=== PATIENT | female | born 1925 | race Caucasian/White ===

== ENCOUNTER 2017-08-08 22:02 | Emergency (ER) | payer OTHER ==
[2017-08-08 22:13] VITALS: BP 153/78; PULSE 75; TEMP 97.6; BMI 27.4
--- NOTE | 2017-08-08 22:56 | PDOC ---
History of Present Illness - General Chief Complaint: Pain, Acute Stated Complaint: LEFT SIDE ABD PAIN Time Seen by Provider: 08/08/17 22:56 - History of Present Illness Initial Comments: 89 year old female with PMH of breast cancer (s/p mastectomy), squamous cell cancer (s/p resection), back spasms, and chronic skin changes presenting for left inguinal pain of sudden onset. She states that she was eating dinner and suddenly felt a sharp burning sensation in her left inguinal area. The pain subsided after a few minutes and she was actually asymptomatic upon presentation to the ED. She denies fevers, chills, nausea, vomiting, diarrhea, constipation, urinary symptoms, or other sick symptoms. 08/09/17 00:56 Past History - Past Medical History Allergies/Adverse Reactions: Allergies Allergy/AdvReac Type Severity Reaction Status Date / Time amoxicillin trihydrate Allergy Verified 08/08/17 22:10 [From Augmentin] meperidine HCl [From Demerol] Allergy Verified 08/08/17 22:10 potassium clavulanate Allergy Verified 08/08/17 22:10 [From Augmentin] sulfamethoxazole Allergy Verified 08/08/17 22:10 [From Bactrim] trimethoprim [From Bactrim] Allergy Verified 08/08/17 22:10 minocycline AdvReac Verified 08/08/17 22:10 Home Medications: Ambulatory Orders Ambien 2.5 mg PO HS 06/15/17 Aspirin [ASA -] 81 mg PO DAILY 06/15/17 Calcium 1,500 mg PO DAILY 06/15/17 Gabapentin 600 mg PO BID 06/15/17 Levothyroxine [Synthroid -] 25 mcg PO DAILY 06/15/17 Lisinopril 7.5 mg PO DAILY 06/15/17 Rosuvastatin Calcium [Crestor] 40 mg PO DAILY 06/15/17 HTN: Yes Hypercholesterolemia: Yes Thyroid Disease: Yes (hypothyroidism) - Surgical History Cardiac Surgery: Yes (stents) - Suicide/Smoking/Psychosocial Hx Smoking History: Never smoked Have you smoked in the past 12 months: No Information on smoking cessation initiated: No Hx Alcohol Use: No Drug/Substance Use Hx: No Review of Systems - Review of Systems Constitutional: No: Chills, Diaphoresis, Fever HEENTM: No: Eye Pain, Blurred Vision Respiratory: No: Cough, Shortness of Breath Cardiac (ROS): No: Chest Pain, Edema, Irregular Heart Rate ABD/GI: No: Abdominal Distended, Constipated, Diarrhea, Nausea, Vomiting : No: Dysuria, Hematuria, Urgency Musculoskeletal: Yes: Back Pain *Physical Exam - Vital Signs Last Vital Signs Temp Pulse Resp BP Pulse Ox 97.6 F 75 18 153/78 99 08/08/17 22:10 08/08/17 22:10 08/08/17 22:10 08/08/17 22:10 08/08/17 22:10 - Physical Exam General Appearance: Yes: Nourished, Appropriately Dressed, Apparent Distress HEENT: positive: EOMI, EMIL, Normal ENT Inspection, Normal Voice, Other (well healing right sided scalp skin graft from previous resection) Neck: positive: Trachea midline, Normal Thyroid, Supple. negative: Tender, Rigid Respiratory/Chest: positive: Lungs Clear, Normal Breath Sounds. negative: Chest Tender, Respiratory Distress Cardiovascular: positive: Regular Rhythm, Regular Rate Gastrointestinal/Abdominal: positive: Normal Bowel Sounds, Flat, Soft. negative : Tender Lymphatic: positive: Adenopathy (Left inguinal lymph node measuring approximately 8-10 mm in diameter.) Extremity: positive: Normal Capillary Refill, Normal Inspection, Normal Range of Motion. negative: Tender Integumentary: positive: Dry, Warm. negative: Normal Color (Has chronic skin changes across face and legs.) Neurologic: positive: Fully Oriented, Alert, Normal Mood/Affect Medical Decision Making - Medical Decision Making 89 year old female with history of malignancy and skin conditions presenting with left inguinal pain that has resolved without intervention. US demonstrating small benign appearing lymph node and UA clear. Will discharge with instructions to follow up with PMD as needed and return precautions. 08/09/17 01:26 *DC/Admit/Observation/Transfer Diagnosis at time of Disposition: Lymphadenopathy - Discharge Dispostion Disposition: HOME Condition at time of disposition: Improved Admit: No - Referrals Referrals: Romana Stovall MD [Primary Care Provider] - - Patient Instructions Additional Instructions: We took an US of your left inguinal region and saw a typical appearing lymph node that should resolve on its own. Please follow up with your primary care provider. Please use Tylenol for pain. Please return to the ED for any new or worsening symptoms. - Post Discharge Activity
--- NOTE | 2017-08-08 23:45 | PDOC ---
Attending Attestation - HPI HPI: 08/08/17 23:49 The patient is a 89 year old female, with a significant past medical history of breast CA s/p mastectomy, HTN, Hyperlipidemia, duodenal ulcer, back spasms, Squamous Cell (underwent AG surgery to remove on the face), who presents to the emergency department with sudden onset of burning pain to her left inguinal region while seated at her table for dinner this evening. She reports the pain/ burning resolved on its own, but was concerned about the pain and presents for evaluation. She denies chest pain, shortness of breath, headache and dizziness. She denies fever, chills, nausea, vomit, diarrhea and constipation. She denies dysuria, frequency, urgency and hematuria. Past surgical history: Carotid Endarterectomy, Colonoscopy, Mastectomy, Angioplasty, vitrectomy of the L eye, Cardiac Stent placed in 2012 Social history: denies toxic habits PCP - Dr. Stovall Documentation prepared by Polina Gillette, acting as medical economics consultant for Dionisio Boland DO <Polina Gillette - Last Filed: 08/08/17 23:49> - Resident Resident Name: Alexandra Nelson - ED Attending Attestation I have performed the following: I have examined & evaluated the patient, The case was reviewed & discussed with the resident, I agree w/resident's findings & plan, Exceptions are as noted - Physicial Exam PE: 08/09/17 01:30 *Physical Exam General Appearance: Yes: Appropriately Dressed. No: Apparent Distress, Intoxicated HEENT: positive: EOMI, EMIL, Normal ENT Inspection, Normal Voice, TMs Normal, Pharynx Normal. negative: Pale Conjunctivae, Photophobia, Scleral Icterus (R), Scleral Icterus (L) Neck: positive: Trachea midline, Normal Thyroid, Supple. negative: Tender, Rigid, Carotid bruit, Stridor, Lymphadenopathy (R), Lymphadenopathy (L), Thyromegaly Respiratory/Chest: positive: Lungs Clear, Normal Breath Sounds. negative: Chest Tender, Respiratory Distress, Accessory Muscle Use, Labored Respiration, RES, Crackles, Rales, Rhonchi, Stridor, Wheezing, Dullness Cardiovascular: positive: Regular Rhythm, Regular Rate, S1, S2. negative: Edema , JVD, Murmur, Bradycardia, Tachycardia Vascular Pulses: Dorsalis-Pedis (R): 2+, Doralis-Pedis (L): 2+ Gastrointestinal/Abdominal: positive: Normal Bowel Sounds, Flat, Soft. negative : Tender, Organomegaly, Pulsatile Mass, Increased Bowel Sounds, Decreased BS, Distended, Guarding, Rebound, Hernia, Hepatomegaly, Spleenomegaly Lymphatic: negative: Adenopathy, Tenderness Musculoskeletal: positive: small inguinal lesion left side negative: CVA Tenderness, Decreased Range of Motion Extremity: positive: Normal Capillary Refill, Normal Inspection, Normal Range of Motion, Pelvis Stable. negative: Tender, Pedal Edema, Swelling, Erythema Integumentary: positive: Normal Color, Dry, Warm. negative: Cyanotic, Erythema , Jaundice, Rash Neurologic: positive: financial coordinator II-XII NML intact, Fully Oriented, Alert, Normal Mood/ Affect, Motor Strength 5/5. negative: EOM Palsy, Facial Droop, Sensory Deficit - Medical Decision Making 08/09/17 19:29 Pt treated and released. <Dionisio Boland - Last Filed: 08/09/17 19:29>
[2017-08-09 00:39] LABS: PH,URINE 5.5 (5.0-8.0); URINE APPEARANCE CLEAR; URINE BILIRUBIN NEGATIVE (NEGATIVE); URINE BLOOD NEGATIVE (NEGATIVE); URINE COLOR LT. YELLOW; URINE GLUCOSE (UA) NEGATIVE (NEGATIVE); URINE KETONE NEGATIVE (NEGATIVE); URINE NITRITE NEGATIVE (NEGATIVE); URINE PROTEIN NEGATIVE (NEGATIVE); URINE UROBILINOGEN 0.2 mg/dL (0.2-1.0)
[2017-08-09 11:07] LABS: URINE LEUK ESTERASE 1+ (NEGATIVE)
[2017-08-09 12:38] LABS: URINE RBC 0-3 /hpf (0-3); URINE WBC 20-30 (0-5)
[2017-08-09 12:39] LABS: URINE BACTERIA MANY /hpf (NEGATIVE)
== END 2017-08-09 01:39 | disposition home or self-care (01) ==
LOC: JER 22:02
DX: R59.0 Localized enlarged lymph nodes (principal); I10 Essential (primary) hypertension; E78.00 Pure hypercholesterolemia, unspecified; E03.9 Hypothyroidism, unspecified; Z85.3 Personal history of malignant neoplasm of breast; Z85.828 Personal history of other malignant neoplasm of skin; Z90.10 Acquired absence of unspecified breast and nipple
CPT/HCPCS: 76882; 81003; 81015; 87086; 93971-TC; 99283-25

== ENCOUNTER 2017-08-15 11:36 | Emergency (ER) | payer OTHER ==
[2017-08-15 11:58] VITALS: BP 122/54; PULSE 84; TEMP 97.7; BMI 19.7
--- NOTE | 2017-08-15 13:11 | PDOC ---
History of Present Illness - General Chief Complaint: Injury Stated Complaint: FALL/ LEG INJURY Time Seen by Provider: 08/15/17 12:49 History Source: Patient Exam Limitations: No Limitations - History of Present Illness Initial Comments: 08/15/17 13:08 89 yr female slipped out of her recliner chair this AM and caused skin tear to her left lower leg. no dizzyness no head trauma. Past History - Past Medical History Allergies/Adverse Reactions: Allergies Allergy/AdvReac Type Severity Reaction Status Date / Time amoxicillin trihydrate Allergy Verified 08/15/17 11:58 [From Augmentin] meperidine HCl [From Demerol] Allergy Verified 08/15/17 11:58 potassium clavulanate Allergy Verified 08/15/17 11:58 [From Augmentin] sulfamethoxazole Allergy Verified 08/15/17 11:58 [From Bactrim] trimethoprim [From Bactrim] Allergy Verified 08/15/17 11:58 minocycline AdvReac Verified 08/15/17 11:58 Home Medications: Ambulatory Orders Aspirin [ASA -] 81 mg PO DAILY 08/09/17 Calcium Carbonate [Calcium] 1,500 mg PO DAILY 08/09/17 Gabapentin 600 mg PO BID 08/09/17 Lisinopril 7.5 mg PO DAILY 08/09/17 Rosuvastatin Calcium [Crestor] 40 mg PO HS 08/09/17 Zolpidem Tartrate [Ambien] 5 mg PO HS 08/09/17 Cancer: Yes COPD: No HTN: Yes Hypercholesterolemia: Yes Thyroid Disease: Yes (hypothyroidism) - Surgical History Cardiac Surgery: Yes (stents) - Immunization History Immunization Up to Date: Yes - Suicide/Smoking/Psychosocial Hx Smoking History: Former smoker Have you smoked in the past 12 months: No If you are a former smoker, when did you quit?: 1974 Information on smoking cessation initiated: No Hx Alcohol Use: Yes (SOCIAL) Drug/Substance Use Hx: No Review of Systems - Review of Systems Able to Perform ROS?: Yes Is the patient limited Sami proficient: No Integumentary: Yes: Symptoms Reported *Physical Exam - Vital Signs Last Vital Signs Temp Pulse Resp BP Pulse Ox 97.7 F 84 20 122/54 96 08/15/17 11:54 08/15/17 11:54 08/15/17 11:54 08/15/17 11:54 08/15/17 11:54 - Physical Exam General Appearance: Yes: Nourished, Appropriately Dressed HEENT: positive: EOMI, EMIL Neck: positive: Supple. negative: Tender lateral, Tender midline Musculoskeletal: positive: Normal Inspection Extremity: positive: Normal Capillary Refill Integumentary: positive: Normal Color, Dry, Warm, Other (left lower leg 8cm skin tear no active bleeding ) Neurologic: positive: Fully Oriented, Alert, Normal Mood/Affect, Normal Response , Motor Strength 5/5 Procedures - Laceration/Wound Repair Left Leg Wound Length: 7.6 to 12.5 cm Wound Explored: clean Wound's Depth, Shape: superficial, flap (skin tear) Irrigated w/ Saline: Yes Sterile Dressing Applied: Yes (xeroform gauze, edges partialy approximated , cling placed) Medical Decision Making - Medical Decision Making 08/15/17 13:13 cc: skin tear to left lower leg will place dressing no active bleeding xeroform and cling wrap pt arees with the plan and will follow up with wound care on Sunday *DC/Admit/Observation/Transfer Diagnosis at time of Disposition: Skin tear - Discharge Dispostion Disposition: HOME Condition at time of disposition: Good - Referrals Referrals: Romana Stovall MD [Primary Care Provider] - - Patient Instructions Additional Instructions: please follow at wound care in 2-3 days for follow up keep dressing dry and intact do not remove until wound care apt elevate your leg at home - Post Discharge Activity
== END 2017-08-15 13:25 ==
LOC: JERFT 11:36
DX: S81.812A Laceration without foreign body, left lower leg, initial encounter (principal); W07.XXXA Fall from chair, initial encounter; Y93.89 Activity, other specified; Y92.122 Bedroom in nursing home as the place of occurrence of the external cause; I10 Essential (primary) hypertension; E78.00 Pure hypercholesterolemia, unspecified; Z87.891 Personal history of nicotine dependence
CPT/HCPCS: 99281-25